=== PATIENT | female | born 1980 | race Caucasian/White ===

== ENCOUNTER 2017-06-19 19:14 | Inpatient (IN) | payer MEDICAID, OTHER ==
[~2017-06-19] VITALS: Ht 167.6 cm; Wt 105.5 kg
[2017-06-19] MEDS ORDERED: SODIUM CHLORIDE 0.9% 1L BAG IV* STA (21:42)
[2017-06-19] MEDS ORDERED: CEFTRIAXONE 1 GM/50 ML (PMX) 50 ML IVPB STA (21:42)
[2017-06-19] MEDS ORDERED: ONDANSETRON 4 MG INJ IV STA (21:46)
[2017-06-19] MEDS ORDERED: PIPER-TAZO 3.375 GM IV (PMX) 50 ML IVPB STA (21:46)
[2017-06-19] MEDS ORDERED: morphine 4 MG/ML VIAL IV STA (21:46)
[2017-06-19] MEDS ORDERED: ACETAMINOPHEN 325 MG TAB PO ONE (22:00)
[2017-06-19 22:33] LABS: BASOPHIL # 0.1 10^3/ul (0.0-0.1); BASOPHILS % 0.8 % (0.0-2.0); EOSINOPHILS # 0.2 10^3/ul (0.0-0.5); EOSINOPHILS % 3.8 % (0.0-7.0); HEMATOCRIT 44.8 % (37.0-47.0); HEMOGLOBIN 14.8 g/dl (12.0-16.0); LYMPHOCYTES # 1.6 10^3/ul (0.8-2.9); MEAN CORPUSCULAR HEMOGLOBIN 29.1 pg (29.0-33.0); MEAN CORPUSCULAR VOLUME 88.2 fl (82.0-101.0); MONOCYTE # 0.6 10^3/ul (0.3-0.9); NEUTROPHIL # 3.8 10^3/ul (1.6-7.5); NEUTROPHILS % 60.1 % (39.0-77.0); PLATELET COUNT 288 10^3/UL (140-415); RED BLOOD COUNT 5.08 10^6/ul (4.20-5.40); RED CELL DISTRIBUTION WIDTH 13.1 % (11.5-14.5); WHITE BLOOD COUNT 6.3 10^3/ul (4.8-10.8)
[2017-06-19 22:42] LABS: ADD UMIC YES; UR ASCORBIC ACID NEGATIVE (NEGATIVE); UR BILIRUBIN (Dip) NEGATIVE (NEGATIVE); UR BLOOD (Dip) 2+ mg/dL (NEGATIVE); UR CLARITY CLEAR (CLEAR); UR COLOR YELLOW (YELLOW); UR GLUCOSE (Dip) NEGATIVE (NEGATIVE); UR KETONES (Dip) NEGATIVE (NEGATIVE); UR LEUKOCYTE ESTERASE (Dip) NEGATIVE Leu/ul (NEGATIVE); UR NITRITE (Dip) NEGATIVE (NEGATIVE); UR RBC 8 /HPF (0-5); UR SPECIFIC GRAVITY (Dip) 1.013 (1.003-1.030); UR TOTAL PROTEIN (Dip) NEGATIVE (NEGATIVE); UR UROBILINOGEN (Dip) NEGATIVE (NEGATIVE)
--- NOTE | 2017-06-19 22:43 | RADRPT ---
PROCEDURE: Portable chest x-ray. CLINICAL INDICATION: 36 years of age, female. Abdominal pain and shortness of breath. TECHNIQUE: Portable AP view of the chest. COMPARISON: None available. FINDINGS: Cardiomediastinal contours are normal. Lungs are clear. Negative for pleural effusion or pneumothorax. No acute bony abnormality. Additional comment: None. IMPRESSION: Negative for evidence of an acute chest process. RPTAT: HCTS Physician Noble Date Time Electronically viewed and signed by Danni Burt Physician on 06/19/2017 22:42 CS/
[2017-06-19 22:48] LABS: INR 0.99; PARTIAL THROMBOPLASTIN TIME 27.6 Sec (25.0-35.0); PROTIME 13.1 Sec (12.2-14.2)
[2017-06-19 22:53] LABS: ALANINE AMINOTRANSFERASE 81 IU/L (13-69); ALBUMIN 4.7 g/dl (3.3-4.9); ALBUMIN/GLOBULIN RATIO 1.38; ALKALINE PHOSPHATASE 98 IU/L (42-121); ANION GAP 18 (8-16); ASPARTATE AMINO TRANSFERASE 60 IU/L (15-46); BILIRUBIN,INDIRECT 0.3 mg/dl (0-1.1); BILIRUBIN,TOTAL 0.3 mg/dl (0.2-1.3); BLOOD UREA NITROGEN 14 mg/dl (7-20); CALCIUM 8.9 mg/dl (8.4-10.2); CARBON DIOXIDE 27 mmol/L (21-31); CHLORIDE 102 mmol/L (97-110); CREATININE 0.96 mg/dl (0.44-1.00); GLUCOSE 95 mg/dl (70-220); SODIUM 143 mmol/L (135-144); TOTAL PROTEIN 8.1 g/dl (6.1-8.1)
[2017-06-19] MEDS ORDERED: NACL 0.9% 3 ML SYG IV SCH (23:00)
[2017-06-19] MEDS ORDERED: DOCUSATE SODIUM 100 MG CAP PO PRN (23:00)
[2017-06-19] MEDS ORDERED: ONDANSETRON 4 MG INJ IV PRN (23:00)
[2017-06-19] MEDS ORDERED: BISACODYL (EC) 5 MG TAB PO PRN (23:00)
[2017-06-19] MEDS ORDERED: ACETAMINOPHEN 325 MG TAB PO PRN (23:00)
--- NOTE | 2017-06-19 23:00 | ERD ---
ER Documentation Chief Complaint Chief Complaint n/v x 3 days fever, wheezing, and fall today from weakness HPI Patient is a 36-year-old female with asthma who presents with vomiting and abdominal pain. She has had 2 days of vomiting and midepigastric pain with burning. She said that she is vomiting everything including water. She has shortness of breath. She has fevers and chills. She has had no treatment as of yet. She felt like she almost passed out today because she was so weak. Upon review of old medical records this is the patient's first visit to the emergency department. She does not currently have a primary doctor. ROS All systems reviewed and are negative except as per history of present illness. Allergies Allergies: Coded Allergies: No Known Allergy (Unverified , 06/19/17) PMhx/Soc Positive for asthma FmHx Family History: diabetes Physical Exam Vitals Vital Signs Date Time Temp Pulse Resp B/P Pulse Ox O2 Delivery O2 Flow Rate FiO2 06/19/17 22:31 Nasal Cannula 06/19/17 19:42 102.7 132 20 137/94 93 Physical Exam Const: Moderate distress Head: Atraumatic Eyes: Normal Conjunctiva ENT: Normal External Ears, Nose and Mouth. Neck: Full range of motion..~ No meningismus. Resp: Clear to auscultation bilaterally Cardio: Cardiac rate without murmur Abd: Soft, tenderness to palpation the right upper quadrant and epigastric area without rebound or guarding Skin: No petechiae or rashes Back: No midline or flank tenderness Ext: No cyanosis, or edema Neur: Awake and alert Psych: Normal Mood and Affect Result Diagram: 06/19/17 1861 Results 24 hrs Laboratory Tests Test 06/19/17 22:15 White Blood Count 6.310^3/ul Red Blood Count 5.0810^6/ul Hemoglobin 14.8g/dl Hematocrit 44.8% Mean Corpuscular Volume 88.2fl Mean Corpuscular Hemoglobin 29.1pg Mean Corpuscular Hemoglobin Concent 33.0g/dl Red Cell Distribution Width 13.1% Platelet Count 65312^3/UL Mean Platelet Volume 10.0fl Neutrophils % 60.1% Lymphocytes % 26.0% Monocytes % 9.0% Eosinophils % 3.8% Basophils % 0.8% Nucleated Red Blood Cells % 0.0/100WBC Neutrophils # 3.810^3/ul Lymphocytes # 1.610^3/ul Monocytes # 0.610^3/ul Eosinophils # 0.210^3/ul Basophils # 0.110^3/ul Nucleated Red Blood Cells # 0.010^3/ul Prothrombin Time 13.1Sec Prothrombin Time Ratio 1.0 INR International Normalized Ratio 0.99 Activated Partial Thromboplast Time 27.6Sec Urine Color YELLOW Urine Clarity CLEAR Urine pH 5.0 Urine Specific [place] 1.013 Urine Ketones NEGATIVEmg/dL Urine Nitrite NEGATIVEmg/dL Urine Bilirubin NEGATIVEmg/dL Urine Urobilinogen NEGATIVEmg/dL Urine Leukocyte Esterase NEGATIVELeu/ul Urine Microscopic RBC 8/HPF Urine Microscopic WBC 1/HPF Urine Hemoglobin 2+mg/dL Urine Glucose NEGATIVEmg/dL Urine Total Protein NEGATIVEmg/dl Current Medications Medications (Trade) Dose Ordered Sig/[place] Route PRN Reason Start Time Stop Time Status Last Admin Dose Admin Sodium Chloride 2760 ml 2,760 ml BOLUS OVER 2 HOURS STAT IV* 06/19/17 21:42 06/19/17 21:44 DC 06/19/17 22:31 Ceftriaxone Sodium (Rocephin) 50 ml @ 100 mls/hr ONCE STAT IVPB 06/19/17 21:42 06/19/17 21:48 DC Morphine Sulfate (morphine) 4 mg ONCE STAT IV 06/19/17 21:46 06/19/17 21:48 DC 06/19/17 22:31 Ondansetron HCl 4 mg 4 mg ONCE STAT IV 06/19/17 21:46 06/19/17 21:48 DC 06/19/17 22:31 Piperacillin Sod/ Tazobactam Sod (Zosyn 3.375gm/ 50 ml (Pmx)) 50 ml @ 100 mls/hr ONCE STAT IVPB 06/19/17 21:46 06/19/17 22:15 DC 06/19/17 22:31 Acetaminophen (Tylenol Tab) 650 mg ONCE ONCE PO 06/19/17 22:00 06/19/17 22:01 DC 06/19/17 22:31 Ondansetron HCl (Zofran Inj) 4 mg BRIDGE ORDER PRN IV NAUSEA AND/OR VOMITING 06/19/17 23:00 06/20/17 22:59 Acetaminophen (Tylenol Tab) 650 mg ER BRIDGE PRN PO MILD PAIN/FEVER 06/19/17 23:00 06/20/17 22:59 Procedures/MDM Chest x-ray negative per radiology. Ultrasound shows no gallbladder disease per radiology. CT abdomen pelvis is pending at this time. EKG read by me: Rate/Rhythm: Sinus tachycardia rate of 118 Intervals: Normal Impression: Sinus tachycardia without ischemia Admit MDM: Patient's infectious symptoms have not stabilized and the patient is at risk of rapid decompensation. The patient will be admitted for careful hydration, antibiotic therapy, and infectious source control. Severe Sepsis criteria: Infectious source: Unclear etiology at this time End organ damage indicated by: No obvious end organ damage Sepsis Management: Time of recognition of sepsis: 2141 Within 3 hours of recognition: Blood cultures x 2 before broad-spectrum antibiotics: Yes 30 ml/kg NS bolus Completed Initial lactate pending Repeat lactate pending Time of recognition of septic shock: No septic shock Septic Shock Assessment: Any lactic acid > 4.0 pending Persistent hypotension (SBP < 90 or 40 mmHg drop, MAP < 65) despite 30 mL/kg IV fluid bolus No Volume Re-assessment for Septic Shock (post 30 ml/kg bolus): No septic shock at this time Persistent Hypotension Treatment: Comfort care No Central line Not Required Vasopressor started Not required I considered further perfusion assessment with CVP measurement, SCVO2, bedside ultrasound volume assessment, passive leg raise, trial of further fluid bolus. And proceeded with 30 ml/kg fluid bolus of NSS, broad spectrum antibiotics, and admission. Accepting Care Team Current data and ongoing care discussed. Admitting Physician: Dr. Castro from the panel team Medicare Biller(s): None Outstanding Data: Culture results and lactic acids Critical Care: Critical care time 35 minutes excluding all billable procedures Emergent fluid management while maintaining close respiratory support. Provision of immediate and broad-spectrum antibiotic therapy. Simultaneous assessment for possible sources in order to direct targeted therapy. Consideration for invasive and chemical support to prevent cardiopulmonary collapse. Departure Diagnosis: Primary Impression: Sepsis Sepsis type: sepsis due to unspecified organism Qualified Code: A41.9 - Sepsis, due to unspecified organism Additional Impressions: Abdominal pain Abdominal location: epigastric Qualified Code: R10.13 - Epigastric pain Vomiting Vomiting type: unspecified Vomiting Intractability: non-intractable Nausea presence: with nausea Qualified Code: R11.2 - Non-intractable vomiting with nausea, unspecified vomiting type Condition: ABDOULAYE Jernigan MD Jun 19, 2017 23:00
[2017-06-19 23:08] LABS: TROPONIN-I < 0.012 ng/ml (0.00-0.12)
[2017-06-19] MEDS ORDERED: ALBUTEROL 0.083% (NEB) 2.5 MG/3 ML AMP NEB STA (23:12)
[2017-06-19] MEDS ORDERED: IPRATROPIUM (NEB) 0.5 MG/2.5 ML AMP NEB STA (23:12)
--- NOTE | 2017-06-20 00:09 | RADRPT ---
PROCEDURE: CT abdomen and pelvis without intravenous contrast. CLINICAL INDICATION: Pain. TECHNIQUE: CT of the abdomen/pelvis was performed utilizing axial images with reconstructions in s agittal and coronal planes. The administered radiation dose is CTDI 23 mGy, DLP 1395 mGy-cm. One or more of the following dose reduction techniques were used: automated exposure control, adjustment of the mA and/or kV according to patient size and/or use of iterative reconstruction technique. DICOM images are available. COMPARISON: No pertinent prior examinations were submitted for comparison. FINDINGS: Visualized Chest: A calcified granuloma is noted in the right lower lobe. Abdomen: The spleen, pancreas, gallbladder,and adrenal glands are unremarkable. The liver is markedly, dif fusely decreased in attenuation, compatible with hepatic steatosis. The kidneys are without hydronephrosis. No definite urinary calculi are seen. There is no evidence of bowel obstruction. The appendix is normal. No intra-abdominal free air is seen. There is no evidence of intra-abdominal adenopathy or free fluid. Pelvis: There is no evidence of pelvic adenopathy. The uterus and ovaries are without enlargement. The uri nary bladder is unremarkable. There is no pelvic free fluid. Osseous structures: Unremarkable. IMPRESSION: No acute findings. Marked hepatic steatosis. RPTAT: HIKT .Santana Hassan MD, MD Date Time Electronically viewed and signed by .Santana Hassan MD, MD on 06/20/2017 00:09 .T/
[2017-06-20] MEDS ORDERED: ALBU8.5H3 INH (01:12)
[2017-06-20] MEDS ORDERED: EXCED PO (01:12)
[2017-06-20 01:47] VITALS: PULSE 98; TEMP 98.8
[2017-06-20 02:30] VITALS: Ht 167.6 cm; Wt 105.5 kg
[2017-06-20 03:30] VITALS: BP 122/73; RESP 18
[2017-06-20 03:57] LABS: BASOPHILS % 0.6 % (0.0-2.0); EOSINOPHILS # 0.2 10^3/ul (0.0-0.5); HEMATOCRIT 36.6 % (37.0-47.0); HEMOGLOBIN 12.2 g/dl (12.0-16.0); LYMPHOCYTES # 1.7 10^3/ul (0.8-2.9); LYMPHOCYTES % 34.3 % (15.0-51.0); MEAN CORPUSCULAR HEMOGLOBIN 29.7 pg (29.0-33.0); MEAN CORPUSCULAR HGB CONC 33.3 g/dl (32.0-37.0); MEAN CORPUSCULAR VOLUME 89.1 fl (82.0-101.0); MEAN PLATELET VOLUME 9.5 fl (7.4-10.4); MONOCYTE # 0.5 10^3/ul (0.3-0.9); MONOCYTES % 10.4 % (0.0-11.0); NEUTROPHIL # 2.5 10^3/ul (1.6-7.5); NEUTROPHILS % 50.1 % (39.0-77.0); PLATELET COUNT 200 10^3/UL (140-415); RED BLOOD COUNT 4.11 10^6/ul (4.20-5.40); RED CELL DISTRIBUTION WIDTH 13.3 % (11.5-14.5)
[2017-06-20 04:20] LABS: ALBUMIN 3.3 g/dl (3.3-4.9); ALBUMIN/GLOBULIN RATIO 1.06; BILIRUBIN,INDIRECT 0.2 mg/dl (0-1.1); BILIRUBIN,TOTAL 0.2 mg/dl (0.2-1.3); CALCIUM 7.7 mg/dl (8.4-10.2); CHOL/HDL RATIO 4.8 RATIO; CREATININE 0.84 mg/dl (0.44-1.00); POTASSIUM 3.8 mmol/L (3.5-5.1); TOTAL PROTEIN 6.4 g/dl (6.1-8.1)
[2017-06-20] MEDS ORDERED: PANTOPRAZOLE (EC) 40 MG TAB PO ONE (04:30)
[2017-06-20 04:38] LABS: T3 UPTAKE 32.6 % (23.5-40.5)
[2017-06-20 04:51] LABS: THYROID STIMULATING HORMONE 5.22 MIU/L (0.465-4.680)
[2017-06-20] MEDS: ACETAMINOPHEN 325 MG TAB PO PRN ×2 (04:58→17:28)
[2017-06-20] MEDS: SUCRALFATE 1 GM TAB PO SCH ×5 (04:59→21:13)
[2017-06-20] MEDS ORDERED: ALBUTEROL/IPRATROPIUM (NEB) 3 ML AMP HHN ONE (05:00)
--- NOTE | 2017-06-20 07:38 | HP ---
Date/Time of Note Date/Time of Note DATE: 06/20/17 TIME: 07:37 Assessment/Plan VTE Prophylaxis VTE Prophylaxis Intervention: SCD's Lines/Catheters IV [facility]from [facility] Peripheral IV Urinary Cath still in place: No Assessment/Plan Chief Complaint/Hosp Course This is a 36-year-old male being admitted to the [facility] floor for: #1 Suspected sepsis: At the current time patient fulfills SIRS criteria however exact source of infection is unknown likely does appear to be possibly abdominal based on her symptoms. At the current time I will withhold further antibiotic coverage at this time though she did receive initial dosages in the ED. This could be possibly viral in nature however secondary to her epigastric pain and comfort at the current time will put her on Protonix and Carafate. I will consult GI for further evaluation as patient likely may need an endoscopy. #2 obesity: We will check a lipid panel, A1c, TSH #3 bilateral lower extremity numbness/tingling: At the current time we will check a hemoglobin A1c vitamin B12 and folate level. Patient denies any trauma or any falls denies any back pain. Will continue to monitor. #4 DVT GI prophylaxis: SCDs, PPI Further treatment strategy will be implemented as per the clinical course Problems: HPI/ROS Admit Date/Time Admit Date/Time Jun 19, 2017 at 22:54 Hx of Present Illness cc: epigastric pain The patient is a 36-year-old female with asthma who presents with vomiting and abdominal pain. She has had 2 days of vomiting and midepigastric pain with burning. She said that she is vomiting everything including water. She has shortness of breath. She has fevers and chills. She has had no treatment as of yet. She felt like she almost passed out today because she was so weak. Of note patient also states at times she notices numbness/tingling in her bilateral lower extremities. Allergies: NKDA Medications: See [place]EN [place] Const: As per HPI Eyes : No pain discharge or redness or change in visual acuity ENT: No pain, sore throat, congestion, congestion, dysphagia or discharge Respiratory: No shortness of breath, cough, sputum, wheezing, or pleuritic pain Cardiovascular: No chest pain, palpitation, PND, or edema GI : As per HPI Genitourinary: No dysuria, hematuria, flank pain , discharge or CVA tenderness Musculoskeletal: No joint pain, back pain, neck pain, restricted range of motion in neck or joints Skin: No rash, bruising or hives Neuro: No headache, dizziness, syncope, seizure, focal weakness Endocrine: No polyuria, polydipsia, temperature intolerance Psych: No hallucination, depression, anxiety or suicidal ideation PMH/Family/Social Past Medical History Medical History: no pertinent history Past Surgical History Past Surgical Hx: no surgical history Family History Significant Family History: cancer (Breast cancer) Social History Alcohol Use: none Smoking Status: Never smoker Drug Use: none Exam/Review of Systems Vital Signs Vitals Vital Signs Date Time Temp Pulse Resp B/P Pulse Ox O2 Delivery O2 Flow Rate FiO2 06/20/17 03:30 97.7 86 18 122/73 96 06/20/17 01:47 Room Air 06/19/17 23:23 21 Intake and Output 06/19/17 06/19/17 06/20/17 15:00 23:00 07:00 Intake Total 480 ml Output Total 450 ml Balance 30 ml Exam Exam General: Patient is lying in bed in some mild distress from epigastric pain HEENT: Atraumatic, normocephalic. The pupils are equal, round and reactive. Extraocular motor are intact Neck: Supple with full range of motion. No rigidity or meningismus Chest: Nontender Lungs: Clear to auscultation bilaterally no crackles rales or wheezing Heart: Normal S1-S2, Regular rhythm and rate. No murmur, S3, or S4 Abdomen: Soft, tender to palpation at the epigastric region, nondistended, normal bowel sounds, no masses or organomegaly present Extremities: Normal to inspection, no edema no cyanosis Neurologic: Normal mental status, speech normal, cranial nerves II through XII are intact, motor and sensory are intact, no focal weakness Additional Comments PROCEDURE: CT abdomen and pelvis without intravenous contrast. CLINICAL INDICATION: Pain. TECHNIQUE: CT of the abdomen/pelvis was performed utilizing axial images with reconstructions in sagittal and coronal planes. The administered radiation dose is CTDI 23 mGy, DLP 1395 mGy-cm. One or more of the following dose reduction techniques were used: automated exposure control, adjustment of the mA and/or kV according to patient size and/or use of iterative reconstruction technique. DICOM images are available. COMPARISON: No pertinent prior examinations were submitted for comparison. FINDINGS: Visualized Chest: A calcified granuloma is noted in the right lower lobe. Abdomen: The spleen, pancreas, gallbladder,and adrenal glands are unremarkable. The liver is markedly, diffusely decreased in attenuation, compatible with hepatic steatosis. The kidneys are without hydronephrosis. No definite urinary calculi are seen. There is no evidence of bowel obstruction. The appendix is normal. No intra- abdominal free air is seen. There is no evidence of intra-abdominal adenopathy or free fluid. Pelvis: There is no evidence of pelvic adenopathy. The uterus and ovaries are without enlargement. The urinary bladder is unremarkable. There is no pelvic free fluid. Osseous structures: Unremarkable. IMPRESSION: No acute findings. Marked hepatic steatosis. RPTAT: HIKT .Santana Hassan MD, Date Time Electronically viewed and signed by .Santana Hassan MD, on 06/20/2017 00:09 .T/ CC: ABDOULAYE CARLSON MD PROCEDURE: Portable chest x-ray. CLINICAL INDICATION: 36 years of age, female. Abdominal pain and shortness of breath. TECHNIQUE: Portable AP view of the chest. COMPARISON: None available. FINDINGS: Cardiomediastinal contours are normal. Lungs are clear. Negative for pleural effusion or pneumothorax. No acute bony abnormality. Additional comment: None. IMPRESSION: Negative for evidence of an acute chest process. RPTAT: HCTS Physician Noble Date Time Electronically viewed and signed by Physician Noble on 06/19/2017 22: 42 CS/ CC: ABDOULAYE CARLSON MD PROCEDURE: Portable chest x-ray. CLINICAL INDICATION: 36 years of age, female. Abdominal pain and shortness of breath. TECHNIQUE: Portable AP view of the chest. COMPARISON: None available. FINDINGS: Cardiomediastinal contours are normal. Lungs are clear. Negative for pleural effusion or pneumothorax. No acute bony abnormality. Additional comment: None. IMPRESSION: Negative for evidence of an acute chest process. RPTAT: HCTS Danni Burt Physician Date Time Electronically viewed and signed by Danni Burt Physician on 06/19/2017 22: 42 CS/ CC: ABDOULAYE CARLSON MD Labs Result Diagram: 06/20/17 03406/20/17 034 Medications Medications Current Medications Acetaminophen (Tylenol Tab) 650 mg Q6H PRN PO PAIN LEVEL 1-3 OR FEVER Last administered on 06/20/17 04:58; Admin Dose 650 MG; Start 06/19/17 at 23:00 Docusate Sodium (Colace) 100 mg Q12H PRN PO CONSTIPATION; Start 06/19/17 at 23 :00 Bisacodyl (Dulcolax) 5 mg DAILY PRN PO CONSTIPATION; Start 06/19/17 at 23:00 Sucralfate (Carafate) 1 gm QID PO Last administered on 06/20/17 04:59; Admin Dose 1 GM; Start 06/20/17 at 04:30 RUDDY OROURKE Jun 20, 2017 07:38
[2017-06-20 07:54] VITALS: BP 123/81; RESP 20
[2017-06-20 08:05] LABS: FOLATE 14.5 ng/ml (2.8-20.0)
[2017-06-20] MEDS ORDERED: PIPER-TAZO 3.375 GM IV (PMX) 50 ML IVPB SCH (12:00)
[2017-06-20] MEDS: ALBUTEROL/IPRATROPIUM (NEB) 3 ML AMP HHN SCH ×2 (12:54→19:22)
[2017-06-20 14:14] VITALS: BP 128/85; RESP 16
[2017-06-20] MEDS ORDERED: CEFTRIAXONE 1 GM/50 ML (PMX) 50 ML IVPB SCH (16:00)
--- NOTE | 2017-06-20 16:32 | CONS ---
Date/Time of Note Date/Time of Note DATE: 06/20/17 TIME: 16:05 Assessment/Plan Assessment/Plan Chief Complaint/Hosp Course Summary Assessment and Plan: Assessment: Nausea/vomiting Epigastric pain Suspected sepsis Obesity Bilateral lower extremity numbness/tingling Plan: Continue PPI Diet as tolerated Patient seen in collaboration with Dr. Simmons Chief Complaint/Reason for Visit: Nausea/vomiting Epigastric pain History of Present Illness: This is a 36-year-old female with past medical history of asthma who presented to the ER with epigastric pain, diarrhea, nausea, vomiting, weakness, fever, chills x4 days, with some SOB. Pain described epigastric pain as a burning sensation, not aggravated or relieved by anything in particular. At the time of evaluation patient states her symptoms have completely resolved since last night. She denies any episodes of hematemesis, hematochezia, or constipation. She did have a poor appetite however now feels hungry since she has not eaten in the past few days. She denies any recent antibiotic use or travel, but does note her 3-year-old son has been ill. A CT abd/pelvis was obtained showing marked hepatic steatosis otherwise no acute findings. With current presentation endoscopy is not warranted. Plan to continue PPI and monitor at this time. . Past Medical History: Asthma Allergies: NKA PHYSICAL EXAMINATION: GENERAL: Well developed, well nourished, alert & oriented x 3, in no acute distress SKIN: No lesions, no stigmata chronic liver disease, no evidence of bleeding diathesis LYMPHATIC: No palpable lymphadenopathy. HEAD: Normocephalic, atraumatic, no tenderness. EYES: Pupils equal reactive to light and accommodation, full extraocular movements, sclera clear, non-icteric, no discharge. EARS/NOSE AND THROAT: Ears normal, nose normal, oropharynx normal, oral membranes well hydrated without lesions. NECK: Supple, no masses, thyroid normal, CHEST: Inspection within normal limits. Exp wheezing CARDIOVASCULAR: Heart: Regular rate and rhythm, GASTROINTESTINAL AND LIVER: Abdomen: Soft, non tenderness, non-distended, no hernias, no masses, no organomegaly, no ascites, no guarding, no rebound tenderness, normoactive bowel sounds. Rectal: Deferred. GENITOURINARY: Female genitalia within normal limits. EXTREMITIES: No cyanosis, clubbing or edema Problems: Consultation Date/Type/Reason Admit Date/Time Jun 19, 2017 at 22:54 Date of Consultation: Jun 20, 2017 Type of Consultation: GI Reason for Consultation Nausea/vomiting Epigastric pain Eyes: no complaints ENT: no complaints Cardiovascular: no complaints Gastrointestinal: nausea, pain, vomiting Genitourinary: no complaints Musculoskeletal: no complaints Skin: bruising Neurologic: no complaints Past Medical History Medical History: no pertinent history Past Surgical History Past Surgical Hx: no surgical history Social History Alcohol Use: none Smoking Status: Never smoker Drug Use: none Exam/Review of Systems Vital Signs Vitals Vital Signs Date Time Temp Pulse Resp B/P Pulse Ox O2 Delivery O2 Flow Rate FiO2 06/20/17 14:14 98.3 91 16 128/85 93 06/20/17 13:18 21 06/20/17 01:47 Room Air Intake and Output 06/19/17 06/19/17 06/20/17 15:00 23:00 07:00 Intake Total 480 ml Output Total 450 ml Balance 30 ml Results Result Diagram: 06/20/17 0341 06/20/17 0341 Results 24 hrs Laboratory Tests Test 06/19/17 22:15 06/19/17 23:35 06/20/17 03:41 06/20/17 05:35 White Blood Count 6.3 5.0 # Red Blood Count 5.08 4.11 L Hemoglobin 14.8 12.2 Hematocrit 44.8 36.6 L Mean Corpuscular Volume 88.2 89.1 Mean Corpuscular Hemoglobin 29.1 29.7 Mean Corpuscular Hemoglobin Concent 33.0 33.3 Red Cell Distribution Width 13.1 13.3 Platelet Count 288 200 # Mean Platelet Volume 10.0 9.5 Neutrophils % 60.1 50.1 Lymphocytes % 26.0 34.3 Monocytes % 9.0 10.4 Eosinophils % 3.8 4.0 Basophils % 0.8 0.6 Nucleated Red Blood Cells % 0.0 0.0 Neutrophils # 3.8 2.5 Lymphocytes # 1.6 1.7 Monocytes # 0.6 0.5 Eosinophils # 0.2 0.2 Basophils # 0.1 0.0 Nucleated Red Blood Cells # 0.0 0.0 Prothrombin Time 13.1 Prothrombin Time Ratio 1.0 INR International Normalized Ratio 0.99 Activated Partial Thromboplast Time 27.6 Urine Color YELLOW Urine Clarity CLEAR Urine pH 5.0 Urine Specific [place] 1.013 Urine Ketones NEGATIVE Urine Nitrite NEGATIVE Urine Bilirubin NEGATIVE Urine Urobilinogen NEGATIVE Urine Leukocyte Esterase NEGATIVE Urine Microscopic RBC 8 H Urine Microscopic WBC 1 Urine Hemoglobin 2+ H Urine Glucose NEGATIVE Urine Total Protein NEGATIVE Sodium Level 143 142 Potassium Level 4.0 3.8 Chloride Level 102 109 Carbon Dioxide Level 27 26 Anion Gap 18 H 11 # Blood Urea Nitrogen 14 13 Creatinine 0.96 0.84 Glucose Level 95 96 Lactic Acid Level 1.8 1.0 1.0 Calcium Level 8.9 7.7 L Total Bilirubin 0.3 0.2 Direct Bilirubin 0.00 0.00 Indirect Bilirubin 0.3 0.2 Aspartate Amino Transf (AST/SGOT) 60 H 42 Alanine Aminotransferase (ALT/SGPT) 81 H 69 Alkaline Phosphatase 98 69 Troponin I < 0.012 Total Protein 8.1 6.4 # Albumin 4.7 3.3 # Globulin 3.40 H 3.10 Albumin/Globulin Ratio 1.38 1.06 Lipase 88 Hemoglobin A1c 5.5 Triglycerides Level 99 Cholesterol Level 121 LDL Cholesterol, Calculated 76 HDL Cholesterol 25 L Cholesterol/HDL Ratio 4.8 Thyroid Stimulating Hormone (TSH) 5.220 H Free Thyroxine Index 2.97 Thyroxine (T4) 9.1 Triiodothyronine (T3) Uptake 32.6 Vitamin B12 Level 973 H Folate 14.5 Medications Medications Current Medications Acetaminophen (Tylenol Tab) 650 mg Q6H PRN PO PAIN LEVEL 1-3 OR FEVER Last administered on 06/20/17 04:58; Admin Dose 650 MG; Start 06/19/17 at 23:00 Docusate Sodium (Colace) 100 mg Q12H PRN PO CONSTIPATION; Start 06/19/17 at 23 :00 Bisacodyl (Dulcolax) 5 mg DAILY PRN PO CONSTIPATION; Start 06/19/17 at 23:00 Sucralfate 1 gm 1 gm QID PO Last administered on 06/20/17 04:59; Admin Dose 1 GM; Start 06/20/17 at 04:30 Ceftriaxone Sodium (Rocephin) 50 ml @ 100 mls/hr Q24H IVPB Last administered on 06/20/17 15:38; Admin Dose 100 MLS/HR; Start 06/20/17 at 16:00 PATIENCE CONNOLLY Jun 20, 2017 16:25
[2017-06-20 20:12] VITALS: BP 131/85; RESP 17
[2017-06-20] MEDS: METHYLPREDNISOLONE 40 MG INJ IV SCH (21:13)
[2017-06-21 02:09] VITALS: BP 127/74; RESP 18
[2017-06-21] MEDS: ALBUTEROL/IPRATROPIUM (NEB) 3 ML AMP HHN SCH ×2 (02:19→07:33)
[2017-06-21 06:18] LABS: BASOPHILS % 0.3 % (0.0-2.0); EOSINOPHILS % 0.6 % (0.0-7.0); HEMATOCRIT 41.6 % (37.0-47.0); HEMOGLOBIN 13.6 g/dl (12.0-16.0); LYMPHOCYTES # 0.7 10^3/ul (0.8-2.9); MEAN CORPUSCULAR HEMOGLOBIN 29.1 pg (29.0-33.0); MEAN CORPUSCULAR HGB CONC 32.7 g/dl (32.0-37.0); MEAN CORPUSCULAR VOLUME 88.9 fl (82.0-101.0); MEAN PLATELET VOLUME 10.2 fl (7.4-10.4); MONOCYTE # 0.1 10^3/ul (0.3-0.9); MONOCYTES % 1.9 % (0.0-11.0); NEUTROPHIL # 2.3 10^3/ul (1.6-7.5); NEUTROPHILS % 74.6 % (39.0-77.0); PLATELET COUNT 251 10^3/UL (140-415); RED BLOOD COUNT 4.68 10^6/ul (4.20-5.40); RED CELL DISTRIBUTION WIDTH 13.1 % (11.5-14.5); WHITE BLOOD COUNT 3.1 10^3/ul (4.8-10.8)
[2017-06-21 06:51] LABS: ALBUMIN 4.2 g/dl (3.3-4.9); ALBUMIN/GLOBULIN RATIO 1.4; BILIRUBIN,INDIRECT 0.1 mg/dl (0-1.1); BILIRUBIN,TOTAL 0.1 mg/dl (0.2-1.3); CREATININE 0.62 mg/dl (0.44-1.00); POTASSIUM 4.1 mmol/L (3.5-5.1); TOTAL PROTEIN 7.2 g/dl (6.1-8.1)
[2017-06-21 07:01] LABS: MAGNESIUM 1.9 mg/dl (1.7-2.5); PHOSPHORUS 2.8 mg/dl (2.5-4.9)
[2017-06-21] MEDS: METHYLPREDNISOLONE 40 MG INJ IV SCH (08:00)
[2017-06-21] MEDS: SUCRALFATE 1 GM TAB PO SCH (08:00)
[2017-06-21 08:10] VITALS: BP 129/87; RESP 20
--- NOTE | 2017-06-21 09:39 | PDOCDIS ---
Discharge Instructions DIAGNOSIS Discharge Diagnosis Systemic inflammatory response syndrome. CONDITION Patient Condition: Stable HOME CARE INSTRUCTIONS: Special Diet: Regular, encouraged healthy diet FOLLOW UP/APPOINTMENTS Follow-up Plan Roby Head MD Specialty: Internal Medicine Office Address: [address] [place] [address] [place], [place] [id number] Office OTHER ORDERS: Other Orders: 1. Take medications as per prescription. 2. Take a regular, preferably low-cholesterol diet. 3. Follow-up with your primary care physician 1 week. If you do not have a primary care physician, his call Dr. Roby Head's office 4. Resume activities as tolerated. SHAYNE CROWLEY NP Jun 21, 2017 09:39
[2017-06-21] MEDS ORDERED: FAMO20TA18 PO (09:42)
[2017-06-21] MEDS ORDERED: ALBU2.5V3 NEB (09:42)
[2017-06-21] MEDS ORDERED: PRED50TA PO (09:42)
--- NOTE | 2017-06-21 10:11 | DS ---
Date/Time of Note Date/Time of Note DATE: 06/21/17 TIME: 10:06 Discharge Summary Admission/Discharge Info Admit Date/Time Jun 19, 2017 at 22:54 Discharge Date/Time Discharge Diagnosis 1. Status post systemic inflammatory response syndrome. 2. Asthma exacerbation. 3. Epigastric pain and tenderness. Resolved. 4. Obesity. Patient Condition: Stable Consults 1. Amanda Simmons MD, Gastroenterology. Procedures CT Abdomen and Pelvis IMPRESSION: No acute findings. Marked hepatic steatosis. Gallbladder Ultrasound IMPRESSION: Negative for evidence of an acute chest process. CXR IMPRESSION: Negative for evidence of an acute chest process. Hx of Present Illness CC: Epigastric pain The patient is a 36-year-old female with asthma who presented with vomiting and abdominal pain. She has had 2 days of vomiting and midepigastric pain with burning. She said that she was vomiting everything including water. She had shortness of breath. She had fevers and chills. She has had no treatment as of yet. She felt like she almost passed out because she was so weak. Of note, the patient also stated at times she noticed numbness/tingling in her bilateral lower extremities. Allergies: NKDA Medications: See [facility] Hospital Course The patient was admitted to inpatient medical surgical floor. She was started on empiric antibiotics for any underlying infectious process. The patient's owens cultures remained negative. The patient remained afebrile for more than 24 hours. The etiology for the patient's underlying systemic inflammatory response syndrome could have been from some viral syndrome. The patient's epigastric pain resolved completely. The patient was seen and evaluated by gastroenterology. The patient's CT of the abdomen and pelvis was negative for any acute findings other than hepatic steatosis. The patient had evidence of asthma exacerbation. The patient was maintained on inhaled bronchodilators along with tapering dose of steroids with improvement in the patient's symptoms. The patient's antibiotics will be discontinued upon discharge since the patient has no evidence of any bacterial infection. The patient had nonspecific bilateral lower extremity tingling and is completely resolved. The patient was noticed to be obese with a BMI of 37.5 kg/m. The patient was advised on weight reduction. The patient's hemoglobin A1c was within normal limits. The patient had a stable hospital course. The patient is stable to be discharged home. Discharge Instructions 1. Take medications as per prescription. 2. Take a regular, preferably low-cholesterol diet. 3. Follow-up with your primary care physician in 1 week. If you do not have a primary care physician, pleases call Dr. Roby Head's office. 4. Resume activities as tolerated. The patient verbalized understanding of her discharge instructions. At this time I would like to thank all the consultants for seeing the patient and providing clinical recommendations. Case discussed with Dr. Wilkins. Home Meds Active Scripts Albuterol Sulfate* (Albuterol Sulfate* Neb) 0.083%-3 Ml Neb, 2.5 MG NEB Q4H, # 30 VIAL Prov:SHAYNE CROWLEY NP 06/21/17 Famotidine* (Famotidine*) 20 Mg Tablet, 20 MG PO BID, #30 TAB Prov:SHAYNE CROWLEY NP 06/21/17 Prednisone* (Prednisone*) 50 Mg Tablet, 40 MG PO DAILY for 2 Days, #2 TAB Prednisone 40 mg p.o. daily 2 days, then Prednisone 20 mg p.o. daily 2 days, then Prednisone 10 mg p.o. daily 2 days, then Prednisone 5 mg p.o. daily 2 days. Prov:SHAYNE CROWLEY NP 06/21/17 Reported Medications Albuterol Sulfate* (Proair HFA*) 8.5 Gm Hfa.aer.ad, 2 PUFF INH Q4, #1 INHALER 06/20/17 Discontinued Reported Medications Acetaminophen/Aspirin/Caffeine* (Excedrin*) 1 Tab Tab, 1 TAB PO for MIGRAIN, TAB 06/20/17 Follow-up Plan Roby Head MD Specialty: Internal Medicine Office Address: [address] [place] [address] Office Primary Care Provider Care Physician No Primary Time spent on discharge: > 30 minutes Pending Labs Laboratory Tests Test 06/21/17 04:50 White Blood Count 3.110^3/ul (4.8-10.8) Red Blood Count 4.6810^6/ul (4.20-5.40) Hemoglobin 13.6g/dl (12.0-16.0) Hematocrit 41.6% (37.0-47.0) Mean Corpuscular Volume 88.9fl (82.0-101.0) Mean Corpuscular Hemoglobin 29.1pg (29.0-33.0) Mean Corpuscular Hemoglobin Concent 32.7g/dl (32.0-37.0) Red Cell Distribution Width 13.1% (11.5-14.5) Platelet Count 43494^3/UL (140-415) Mean Platelet Volume 10.2fl (7.4-10.4) Neutrophils % 74.6% (39.0-77.0) Lymphocytes % 22.0% (15.0-51.0) Monocytes % 1.9% (0.0-11.0) Eosinophils % 0.6% (0.0-7.0) Basophils % 0.3% (0.0-2.0) Nucleated Red Blood Cells % 0.0/100WBC (0.0-0.0) Neutrophils # 2.310^3/ul (1.6-7.5) Lymphocytes # 0.710^3/ul (0.8-2.9) Monocytes # 0.110^3/ul (0.3-0.9) Eosinophils # 0.010^3/ul (0.0-0.5) Basophils # 0.010^3/ul (0.0-0.1) Nucleated Red Blood Cells # 0.010^3/ul (0.0-0.0) Sodium Level 142mmol/L (135-144) Potassium Level 4.1mmol/L (3.5-5.1) Chloride Level 106mmol/L (97-110) Carbon Dioxide Level 22mmol/L (21-31) Anion Gap 18 (8-16) Blood Urea Nitrogen 13mg/dl (7-20) Creatinine 0.62mg/dl (0.44-1.00) Glucose Level 184mg/dl (70-220) Calcium Level 9.0mg/dl (8.4-10.2) Phosphorus Level 2.8mg/dl (2.5-4.9) Magnesium Level 1.9mg/dl (1.7-2.5) Total Bilirubin 0.1mg/dl (0.2-1.3) Direct Bilirubin 0.00mg/dl (0.00-0.20) Indirect Bilirubin 0.1mg/dl (0-1.1) Aspartate Amino Transf (AST/SGOT) 47IU/L (15-46) Alanine Aminotransferase (ALT/SGPT) 73IU/L (13-69) Alkaline Phosphatase 81IU/L (42-121) Total Protein 7.2g/dl (6.1-8.1) Albumin 4.2g/dl (3.3-4.9) Globulin 3.00g/dl (1.3-3.2) Albumin/Globulin Ratio 1.40 Microbiology Date/Time Source Procedure Growth Status 06/20/17 12:30 Nasopharyngeal Influenza Types A,B Direct EIA - Final Complete SHAYNE CROWLEY [employer] Jun 21, 2017 10:11
--- NOTE | 2017-06-21 10:23 | PN ---
Date/Time of Note Date/Time of Note DATE: 06/21/17 TIME: 10:21 Assessment/Plan VTE Prophylaxis VTE Prophylaxis Intervention: SCD's Lines/Catheters IV Catheter Type (from Nrs): Saline Lock Urinary Cath still in place: No Assessment/Plan Chief Complaint/Hosp Course Summary Assessment and Plan: Assessment: Nausea/vomiting Epigastric pain Suspected sepsis Obesity Bilateral lower extremity numbness/tingling Plan: Continue PPI Pt doing well ok to be d/c'd from GI point of view Patient seen in collaboration with Dr. Simmons Subjective: Course reviewed with nursing staff Patient interviewed and examined All labs, imaging and other results reviewed The patient is doing well, denies further episodes of abd pain nausea or vomiting, continue PPI PT ok to be d/c'd from GI point of view- if ok with primary PHYSICAL EXAMINATION: GENERAL: Well developed, well nourished, alert & oriented x 3, in no acute distress SKIN: No lesions, no stigmata chronic liver disease, no evidence of bleeding diathesis LYMPHATIC: No palpable lymphadenopathy. HEAD: Normocephalic, atraumatic, no tenderness. EYES: Pupils equal reactive to light and accommodation, full extraocular movements, sclera clear, non-icteric, no discharge. EARS/NOSE AND THROAT: Ears normal, nose normal, oropharynx normal, oral membranes well hydrated without lesions. NECK: Supple, no masses, thyroid normal, CHEST: Inspection within normal limits. Exp wheezing CARDIOVASCULAR: Heart: Regular rate and rhythm, GASTROINTESTINAL AND LIVER: Abdomen: Soft, non tenderness, non-distended, no hernias, no masses, no organomegaly, no ascites, no guarding, no rebound tenderness, normoactive bowel sounds. Rectal: Deferred. GENITOURINARY: Female genitalia within normal limits. EXTREMITIES: No cyanosis, clubbing or edema Problems: Exam/Review of Systems Vital Signs Vitals Vital Signs Date Time Temp Pulse Resp B/P Pulse Ox O2 Delivery O2 Flow Rate FiO2 06/21/17 08:10 98.0 93 20 129/87 98 06/21/17 07:31 21 06/20/17 01:47 Room Air Intake and Output 06/20/17 06/20/17 06/21/17 14:59 22:59 06:59 Intake Total 1010 ml 2280 ml Balance 1010 ml 2280 ml Results Result Diagram: 06/21/17 0450 06/21/17 0450 Results 24 hrs Laboratory Tests Test 06/21/17 04:50 White Blood Count 3.1 #L Red Blood Count 4.68 Hemoglobin 13.6 Hematocrit 41.6 Mean Corpuscular Volume 88.9 Mean Corpuscular Hemoglobin 29.1 Mean Corpuscular Hemoglobin Concent 32.7 Red Cell Distribution Width 13.1 Platelet Count 251 # Mean Platelet Volume 10.2 Neutrophils % 74.6 Lymphocytes % 22.0 Monocytes % 1.9 Eosinophils % 0.6 Basophils % 0.3 Nucleated Red Blood Cells % 0.0 Neutrophils # 2.3 Lymphocytes # 0.7 L Monocytes # 0.1 L Eosinophils # 0.0 Basophils # 0.0 Nucleated Red Blood Cells # 0.0 Sodium Level 142 Potassium Level 4.1 Chloride Level 106 Carbon Dioxide Level 22 Anion Gap 18 #H Blood Urea Nitrogen 13 Creatinine 0.62 Glucose Level 184 Calcium Level 9.0 Phosphorus Level 2.8 Magnesium Level 1.9 Total Bilirubin 0.1 L Direct Bilirubin 0.00 Indirect Bilirubin 0.1 Aspartate Amino Transf (AST/SGOT) 47 H Alanine Aminotransferase (ALT/SGPT) 73 H Alkaline Phosphatase 81 Total Protein 7.2 Albumin 4.2 Globulin 3.00 Albumin/Globulin Ratio 1.40 Medications Medications Current Medications Acetaminophen (Tylenol Tab) 650 mg Q6H PRN PO PAIN LEVEL 1-3 OR FEVER Last administered on 06/20/17 17:28; Admin Dose 650 MG; Start 06/19/17 at 23:00 Docusate Sodium (Colace) 100 mg Q12H PRN PO CONSTIPATION; Start 06/19/17 at 23 :00 Bisacodyl (Dulcolax) 5 mg DAILY PRN PO CONSTIPATION; Start 06/19/17 at 23:00 Sucralfate 1 gm 1 gm QID PO Last administered on 06/21/17 08:00; Admin Dose 1 GM; Start 06/20/17 at 04:30 Ceftriaxone Sodium (Rocephin) 50 ml @ 100 mls/hr Q24H IVPB Last administered on 06/20/17 15:38; Admin Dose 100 MLS/HR; Start 06/20/17 at 16:00 Methylprednisolone Sodium Succinate (Solu-Medrol) 40 mg Q12 IV Last administered on 06/21/17 08:00; Admin Dose 40 MG; Start 06/20/17 at 21:00 PATIENCE CONNOLLY Jun 21, 2017 10:23
== END 2017-06-21 11:09 | disposition home or self-care (01) | DRG 872 ==
LOC: E/R 19:14 → PP2 22:54
PROVIDERS: ADMIT Family Medicine; ATTEND Family Medicine
DX: A41.9 Sepsis, unspecified organism (principal); J45.901 Unspecified asthma with (acute) exacerbation; E66.9 Obesity, unspecified; Z68.37 Body mass index [BMI] 37.0-37.9, adult; R20.0 Anesthesia of skin; R20.2 Paresthesia of skin; R10.13 Epigastric pain
CPT/HCPCS: 36415; 71010; 74176; 76705; 80053; 80061; 81001; 82607; 82746; 83036; 83605; 83690; 83735; 84100; 84436; 84443; 84479; 84484; 85025; 85610; 85730; 87040; 87086; 87400; 93005; 94640; 94664; 96374; 96375; J0696; J2270; J2405; J2543; J2920; J7030